=== PATIENT | female | born 2000 | race Caucasian/White ===

== ENCOUNTER 2021-07-25 09:21 | Outpatient (CLI) | payer OTHER | END 2021-07-25 09:22 | disposition home or self-care (01) | LOC: CSHULT 09:21 | PROVIDERS: ATTEND Internal Medicine Gastroenterology | DX: R10.9 Unspecified abdominal pain (principal); K82.4 Cholesterolosis of gallbladder | CPT/HCPCS: 76700 ==

== ENCOUNTER 2021-08-01 12:47 | Outpatient (CLI) | payer OTHER ==
[2021-08-01 13:36] LABS: BHCG - Serum Negative (NEGATIVE)
[2021-08-01 13:37] LABS: Pregs Control Background? CLEAR/WHITE (CLR/WHITE); Pregs Control Bar Appear? YES (CONTROL BAR)
[2021-08-01 22:28] LABS: SARS-CoV-2 PCR by NAA Not Detected (NotDetected)
== END 2021-08-01 12:48 | disposition home or self-care (01) ==
LOC: CSHLAB 12:47
PROVIDERS: ATTEND Internal Medicine Gastroenterology
DX: Z01.812 Encounter for preprocedural laboratory examination (principal); Z20.822 Contact with and (suspected) exposure to COVID-19
CPT/HCPCS: 84703; U0003; U0005

== ENCOUNTER 2021-08-04 09:48 | Day surgery (SDC) | payer OTHER ==
[2021-08-01 13:08] VITALS: BMI 19.0
[2021-08-04] MEDS ORDERED: Lidocaine 1% MPF 2 ML VIAL ONE (09:54)
[2021-08-04] MEDS ORDERED: PROPOFOL 40 ML ONE (11:01)
[2021-08-04] MEDS ORDERED: Lidocaine 4% PF 5 ML AMP ONE (11:02)
== END 2021-08-04 13:15 | disposition home or self-care (01) ==
LOC: CSHSDC 09:48
PROVIDERS: ATTEND Internal Medicine Gastroenterology
PROC: 0DJ08ZZ Inspection of Upper Intestinal Tract, Via Natural or Artificial Opening Endoscopic (ICD-10-PCS; principal; 2021-08-04)
DX: R10.9 Unspecified abdominal pain (principal); R11.0 Nausea; K21.9 Gastro-esophageal reflux disease without esophagitis; F41.9 Anxiety disorder, unspecified
CPT/HCPCS: J2704

== ENCOUNTER 2023-02-27 12:43 | Emergency (ER) | payer OTHER ==
[2023-02-27 13:46] LABS: Pregnancy Test - Urine (BHCG) Negative (Negative); Pregu Control Background? CLEAR/WHITE (CLR/WHITE); Pregu Control Bar Appear? YES (CONTROL BAR); Specific Gravity 1.005 (1.002-1.036)
== END 2023-02-27 15:30 | disposition home or self-care (01) ==
LOC: CSHERS 12:43
DX: Z32.02 Encounter for pregnancy test, result negative (principal)
CPT/HCPCS: 36415; 81025; 84702; 99283

== ENCOUNTER 2023-03-01 12:34 | Emergency (ER) | payer OTHER ==
[2023-03-01 15:43] LABS: Bilirubin Neg (Negative); Blood, Urine 250 (Negative); Clarity Slightly Cloudy (Clear); Glucose, Urine (Dipstick) Normal (Negative); Ketone, Urine Negative (Negative); Leukocyte 100 (Negative); Nitrite Negative (Negative); Protein, Urine (Dipstick) 15 mg/dl (Neg-Trace); Urobilinogen Normal mg/dL (Less than 2)
[2023-03-01 15:44] LABS: Bacteria/HPF None Seen HPF (None Seen); CAUTI Indications for Culture Pregnancy; RBC/HPF 21-50 HPF (0-3); Squamous Epithelial None Seen HPF (0-3); Urine Culture Reflex Yes Yes; WBC/HPF 0-3 HPF (0-3)
[2023-03-01 16:22] LABS: #Eosinphils 0.3 10x3/uL (0.0-0.5); #Monocytes 0.4 10x3/uL (0.0-1.1); %Basophils 0.4 % (0.0-2.0); %Eosinophils 4.3 % (0.0-6.0); %Lymphocytes 30.5 % (18.0-47.0); %Monocytes 5.7 % (0.0-10.0); Hematocrit 37.9 % (34.9-44.5); Hemoglobin 12.9 g/dL (12.0-15.5); Mean Corpuscular Hemoglobin 30.6 pg (27.0-33.0); Mean Corpuscular Volume 89.8 fl (81.6-98.3); Mean Platelet Volume 10.5 fl (7.4-10.4); Platelet Count 186 10x3/uL (150-450); RBC Distribution Width 12.6 % (11.5-14.5); Red Blood Cell (RBC) Count 4.22 10x6/uL (3.90-5.03); White Blood Cell (WBC) Count 6.8 10x3/uL (3.5-10.5)
== END 2023-03-01 16:46 | disposition home or self-care (01) ==
LOC: CSHERS 12:34
DX: O03.9 Complete or unspecified spontaneous abortion without complication (principal); Z3A.01 Less than 8 weeks gestation of pregnancy
CPT/HCPCS: 76856; 81001; 84702; 85025; 86900; 86901; 87086

== ENCOUNTER 2023-07-20 09:18 | Outpatient (CLI) | payer OTHER | END 2023-07-20 09:19 | disposition home or self-care (01) | LOC: CSHULT 09:18 | PROVIDERS: ATTEND Family Medicine | DX: Z34.82 Encounter for supervision of other normal pregnancy, second trimester (principal); Z3A.20 20 weeks gestation of pregnancy | CPT/HCPCS: 76805 ==

== ENCOUNTER 2023-07-24 17:18 | Day surgery (SDC) | payer OTHER ==
[2023-07-24 17:59] VITALS: BMI 18.8
[2023-07-24] MEDS ORDERED: hydrALAZINE 20 MG/ML VIAL SLOW IVP PRN (18:02)
== END 2023-07-24 18:49 | disposition home or self-care (01) ==
LOC: CSHLD/OP 17:18
PROVIDERS: ATTEND Family Medicine
DX: O47.02 False labor before 37 completed weeks of gestation, second trimester (principal); O23.42 Unspecified infection of urinary tract in pregnancy, second trimester; N39.0 Urinary tract infection, site not specified; Z79.899 Other long term (current) drug therapy; Z91.048 Other nonmedicinal substance allergy status; Z3A.21 21 weeks gestation of pregnancy

== ENCOUNTER 2023-09-14 11:46 | Day surgery (SDC) | payer OTHER ==
[2023-09-14] MEDS ORDERED: hydrALAZINE 20 MG/ML VIAL SLOW IVP PRN (12:48)
== END 2023-09-14 14:15 | disposition home health service (06) ==
LOC: CSHLD/OP 11:46
PROVIDERS: ATTEND Family Medicine
DX: O36.8130 Decreased fetal movements, third trimester, not applicable or unspecified (principal); O36.5930 Maternal care for other known or suspected poor fetal growth, third trimester, not applicable or unspecified; O23.43 Unspecified infection of urinary tract in pregnancy, third trimester; O23.593 Infection of other part of genital tract in pregnancy, third trimester; N80.00 Endometriosis of the uterus, unspecified; Z98.890 Other specified postprocedural states; Z79.899 Other long term (current) drug therapy; Z3A.28 28 weeks gestation of pregnancy
CPT/HCPCS: 76819

== ENCOUNTER 2025-03-04 09:57 | Inpatient (IN) | payer OTHER ==
[2025-03-03 15:22] LABS: Hematocrit 38.2 % (34.9-44.5); Hemoglobin 13.3 g/dL (12.0-15.5); Platelet Count 172 10x3/uL (150-450)
[2025-03-03 17:39] LABS: Hep B Surf Ag Non-Reactive S/CO (NonReactive)
[2025-03-03 17:40] LABS: Syphilis Antibody Index 0.07 S/CO (<1.00 Non-Reactive)
[2025-03-04] MEDS ORDERED: Famotidine/PF 20 mg/2ml Vial SLOW IVP PRN (10:02)
[2025-03-04] MEDS ORDERED: Tranexamic Acid 1,000 MG/10 ML VIAL IVP PRN (10:02)
[2025-03-04] MEDS ORDERED: Ondansetron PF 4 MG/2 ML Vial IVP PRN ×3 (10:02→13:45)
[2025-03-04] MEDS ORDERED: Methylergonovine 0.2 MG/ML VIAL IM PRN (10:02)
[2025-03-04] MEDS ORDERED: Carboprost 250 MCG/ML AMP IM PRN (10:02)
[2025-03-04] MEDS ORDERED: hydrALAZINE 20 MG/ML VIAL SLOW IVP PRN ×2 (10:02→17:40)
[2025-03-04] MEDS ORDERED: Bicitra 30 ML UDCUP PO PRN (10:02)
[2025-03-04] MEDS ORDERED: Oxytocin 30 units/NS 500 ML 500 ML IV SCH (10:02)
[2025-03-04] MEDS ORDERED: Diphenoxylate HCl/Atropine Tablet PO PRN (10:02)
[2025-03-04 11:23] VITALS: BMI 26.6
[2025-03-04] MEDS ORDERED: diphenhydrAMINE 50 MG/ML VIAL IVP PRN (13:45)
[2025-03-04] MEDS ORDERED: Meperidine HCl/PF 25 MG (1 mL) VIAL SLOW IVP PRN (13:45)
[2025-03-04] MEDS ORDERED: Ketorolac Tromethamine 30 MG (1 mL) VIAL IVP SCH (13:45)
[2025-03-04] MEDS ORDERED: Communication Order-Pharmacy FS SCH (13:45)
[2025-03-04] MEDS: Ketorolac Tromethamine 30 MG (1 mL) VIAL IVP SCH ×2 (14:29→20:09)
[2025-03-04] MEDS ORDERED: Lanolin Ointment 7 GM TUBE TOP PRN (17:40)
[2025-03-04] MEDS ORDERED: Bisacodyl 10 MG SUPP PR PRN (17:40)
[2025-03-04] MEDS ORDERED: diphenhydrAMINE 25 MG CAP PO PRN (17:40)
[2025-03-04] MEDS: Ondansetron PF 4 MG/2 ML Vial ONE (17:52)
[2025-03-04] MEDS: Dexamethasone 10 MG/ML VIAL ONE (17:52)
[2025-03-04] MEDS: Tranexamic Acid 1,000 MG/10 ML VIAL ONE (17:53)
[2025-03-04] MEDS: PHENYLEPHRINE-NS 100 MCG/ML 10 ML SYRINGE ONE (17:53)
[2025-03-04] MEDS: Oxytocin 10 UNITS/ML VIAL ONE (17:53)
[2025-03-04] MEDS: CEFAZOLIN 1 GM VIAL ONE (17:53)
[2025-03-04] MEDS: Ferrous Sulfate 325 MG TAB PO SCH (21:00)
[2025-03-05] MEDS ORDERED: Meperidine HCl/PF 25 MG (1 mL) VIAL IM PRN (01:45)
[2025-03-05] MEDS: HYDROcodone/Acetaminophen 5/325 mg Tablet PO PRN ×2 (02:32→16:48)
[2025-03-05 06:00] LABS: Hematocrit 28.7 % (34.9-44.5); Hemoglobin 9.6 g/dL (12.0-15.5); Mean Corpuscular Hemoglobin 30.2 pg (27.0-33.0); Mean Corpuscular Volume 90.3 fL (81.6-98.3); Platelet Count 143 10x3/uL (150-450); Red Blood Cell (RBC) Count 3.18 10x6/uL (3.90-5.03); White Blood Cell (WBC) Count 12.59 10x3/uL (3.5-10.5)
[2025-03-05] MEDS: Simethicone Chewable 80 MG TAB PO PRN (09:13)
[2025-03-05] MEDS: Ibuprofen 800 MG TAB PO SCH (14:38)
[2025-03-06] MEDS: Ondansetron PF 4 MG/2 ML Vial IVP PRN (01:59)
[2025-03-06] MEDS: Boostrix 0.5 ML (Tdap) VIAL (>/=7 yrs of age) IM ONE (08:35)
[2025-03-07 08:05] VITALS: TEMP 98.4
[2025-03-07 19:49] VITALS: BP 111/73
== END 2025-03-08 09:20 | disposition home or self-care (01) | DRG 788 ==
LOC: CSHLD 09:57 → CSHPP 17:15
PROVIDERS: ADMIT Family Medicine; ATTEND Family Medicine
PROC: 10D00Z1 Extraction of Products of Conception, Low, Open Approach (ICD-10-PCS; principal; 2025-03-04)
PROC: 30233N1 Transfusion of Nonautologous Red Blood Cells into Peripheral Vein, Percutaneous Approach (ICD-10-PCS; 2025-03-04)
DX: O44.03 Complete placenta previa NOS or without hemorrhage, third trimester (principal); O34.211 Maternal care for low transverse scar from previous cesarean delivery; Z3A.36 36 weeks gestation of pregnancy; Z37.0 Single live birth
CPT/HCPCS: 36416; 36430; 51702; 85014; 85018; 85027; 85049; 86780; 86850; 86900; 86901; 87340; C1889; J0690; J1100; J1885; J2274; J2310; J2405; J2550; J2590; J3010

== ENCOUNTER 2025-03-10 21:11 | Day surgery (SDC) | payer OTHER | END 2025-03-10 22:50 | disposition home or self-care (01) | LOC: CSHLD/OP 21:11 → CSHERS 21:11 → EDSTATUS 22:30 → CSHLD/OP 22:50 | PROVIDERS: ATTEND Obstetrics & Gynecology | DX: O44.03 Complete placenta previa NOS or without hemorrhage, third trimester (principal); O34.211 Maternal care for low transverse scar from previous cesarean delivery; O09.43 Supervision of pregnancy with grand multiparity, third trimester; Z3A.36 36 weeks gestation of pregnancy; Z87.59 Personal history of other complications of pregnancy, childbirth and the puerperium; Z88.8 Allergy status to other drugs, medicaments and biological substances; Z79.899 Other long term (current) drug therapy | CPT/HCPCS: 99281 ==